=== PATIENT | male | born 1960 | race Caucasian/White ===

== ENCOUNTER 2021-03-12 20:19 | Emergency (ER) | payer SELFPAY ==
[2021-03-12] MEDS ORDERED: Tetracaine HCl/PF 0.5% 4 ML Bottle OP ONE (20:38)
--- NOTE | 2021-03-12 21:21 | EDM.PDOC ---
ED HPI GENERAL MEDICAL PROBLEM - General Chief Complaint: ENT Problem Stated Complaint: OBJECT IN EYE Time Seen by Provider: 03/12/21 20:50 Source of Information: Reports: Patient History Limitations: Reports: No Limitations - History of Present Illness INITIAL COMMENTS - FREE TEXT/NARRATIVE: Thierno is a 60 year old male whom present to Er with left eye irritation due to something flying into his eye while 4 wheeling this afternoon. Thierno attempted to irrigated the eye but no improvement of irritation. hTierno did not bring his glasses to ER for evaluation. Thierno denies any changes or worsening of vision in affected eye. Left Eye Pain Score (Numeric/FACES): 9 - Related Data Allergies Allergy/AdvReac Type Severity Reaction Status Date / Time No Known Allergies Allergy Verified 03/12/21 20:44 Home Meds: Home Meds Erythromycin Base [Erythromycin 0.5% Ophth Oint] 1 applic OP Q4H 5 Days #1 tube 03/12/21 [Rx] Simvastatin 1 tab PO DAILY 03/12/21 [History] Past Medical History Cardiovascular History: Reports: High Cholesterol - Infectious Disease History Infectious Disease History: Reports: Chicken Pox Social & Family History - Tobacco Use Tobacco Use Status *Q: Never Tobacco User Second Hand Smoke Exposure: No - Caffeine Use Caffeine Use: Reports: Coffee - Recreational Drug Use Recreational Drug Use: No ED ROS GENERAL - Review of Systems Review Of Systems: Comprehensive ROS is negative, except as noted in HPI. ED EXAM GENERAL W FULL EYE - Physical Exam Exam: See Below Exam Limited By: No Limitations General Appearance: Alert, WD/WN, No Apparent Distress, Mild Distress (left eye irritation) Eye Exam: Left Eye: Conjunctival Injection, Foreign Body (found grain of sand with lid eversion ), Bilateral Eye: EOMI, PERRL Visual Acuity (R) 20/: 100 Visual Acuity (L) 20/: 100 With Correction: No Eyelids: Bilateral: Normal Appearance Conjunctiva & Sclera: Right: Normal Appearance, Injected Cornea Exam: Right: Corneal Abrasion (very slight), Left: Normal Appearance, Examined with Flourescein Extraocular Movements: Bilateral: Intact Ears: Hearing Grossly Normal Throat/Mouth: Normal Voice, No Airway Compromise Neck: Normal Inspection Respiratory/Chest: No Respiratory Distress, Normal Breath Sounds Cardiovascular: Normal Peripheral Pulses, Regular Rate, Rhythm Neurological: Alert, Oriented Psychiatric: Normal Affect, Normal Mood ED EYE w/ Add Procedure - Eye Procedure Alcaine Drops Administered: Yes Eye FB Removal: Removal w/ Cotton Swab (grain of sand in upper lip) Eye Irrigated w/ Saline (ccs): 5 (remove stain) Course - Vital Signs Last Recorded V/S: Last Vital Signs Temp 36.6 C 03/12/21 20:42 Pulse 87 03/12/21 20:42 Resp 16 03/12/21 20:42 BP 123/86 03/12/21 20:42 Pulse Ox 98 03/12/21 20:42 - Orders/Labs/Meds Orders: Active Orders 24 hr Category Date Time Status Visual Acuity [Vision Test] [RC] ASDIRECTED Care 03/12/21 20:39 Active Meds: Medications Discontinued Medications Generic Name Dose Route Start Last Admin Trade Name Freq PRN Reason Stop Dose Admin Tetracaine HCl 0.02 ml 03/12/21 20:38 03/12/21 20:51 Tetracaine Hcl/Pf 0.5% 4 Ml Bottle OP 03/12/21 20:39 2 drop ASDIRECTED ONE Administration Departure - Departure Time of Disposition: 21:17 Disposition: Home, Self-Care 01 Clinical Impression: Corneal abrasion, left, Eye foreign body - Discharge Information Prescriptions: Erythromycin Base [Erythromycin 0.5% Ophth Oint] 1 applic OP Q4H 5 Days #1 tube Instructions: Eye Foreign Body, [id number], Corneal Abrasion Referrals: PCP,None [Primary Care Provider] - Forms: ED Department Discharge Additional Instructions: 1. Eye ointment every 4 hrs x 24 hours then TID x 5 days to prevent infection and help with pain. 2. Eye drops for pain every 2 hours if needed. 3. Tylenol 500-1000mg every 6-8 hours for mild to moderate pain. 4. Ibuprofen 600-800mg every 6-8 hours with food for pain and swelling. 5. Wear sunglasses due to light sensitivity. 6. See PCP or local eye doctor for recheck if not completed resolved by Sunday/Sunday. Sepsis Event Note (ED) - Evaluation Sepsis Screening Result: No Definite Risk - Focused Exam Vital Signs: Vital Signs Temp Pulse Resp BP Pulse Ox 03/12/21 20:42 36.6 C 87 16 123/86 98 03/12/21 20:34 36.6 C 87 16 123/86 98 - My Orders Last 24 Hours: My Active Orders 03/12/21 20:39 Visual Acuity [Vision Test] [RC] ASDIRECTED - Assessment/Plan Last 24 Hours: My Active Orders 03/12/21 20:39 Visual Acuity [Vision Test] [RC] ASDIRECTED
== END 2021-03-12 21:32 | disposition home or self-care (01) ==
LOC: JP.ED 20:19
DX: S05.02XA Injury of conjunctiva and corneal abrasion without foreign body, left eye, initial encounter (principal); E78.00 Pure hypercholesterolemia, unspecified; Z79.899 Other long term (current) drug therapy; X58.XXXA Exposure to other specified factors, initial encounter
CPT/HCPCS: 65205; 99283; 99283-25